=== PATIENT | female | born 1930 | race Caucasian/White ===

== ENCOUNTER 2016-05-20 14:21 | Observation (INO) | payer MEDICARE, BC ==
[~2016-05-20] VITALS: Ht 160 cm; Wt 92.7 kg
[~2016-05-20 14:21] MED LIST: ALTACE2.5 MG PO; ALTACE5 M1 PO; APIDRAVL SQ; ARMOUR THYROID90 MG PO; ASPIRIN 32325 MG/TAB PO; AZO-CRANBERRY450 MG PO; BUMEX 1MG TA1 MG/TA1 PO; CINNAMON/CHROMIUM PO; COLACE 100100 MG/CAP PO; COMBIGAN 0.2%-0.5 ML OS; CORDARONE200 MG/TAB PO; DEMADEX 20MG20 M1 PO; DEMADEX 20MG20 MG PO; FLAXSEED PO; GARLIC OIL1 MG PO; GARLIC100 MG PO; LANTUS100 U/ML SC; LANTUS100 U/ML SQ; LEVEMIR INSULIN; LEVEMIR100 U/ML SC; LIDODERM 5% PATC1 EA TP; MAG-OX 400400 MG/TAB PO; MAGOX; MASON NATURAL1000 MG PO; MASON NATURAL500 MG PO; METOLAZONE; MICRO-K 10 EXT10 MEQ PO; MICRO-K 1010 MEQ PO; NITROGLYCERIN 0.2 MG/HR TD; OS-CAL 500 + D1 TAB PO; PLAVIX 75MG TAB75 MG PO; PRILOSEC 20MG20 MG PO; SUPER EPA 1001000 MG PO; TEARS-ARTIFICIA15 ML OS; TEARS-ARTIFICIA15 ML OU; TORSEMIDE PO; TYLENOL 325MG325 MG PO; TYLENOL 500MG500 MG PO; ULTRAM 50MG TAB50 MG PO; ULTRAM50 MG PO; VITAMIN C500 MG PO; VITAMIN D1000 IU PO; ZAROXOLYN 2.52.5 MG PO; ZAROXOLYN2.5 MG PO; ZIAC 2.5/6.25MG1 TAB PO; see list
[2016-05-20 15:44] LABS: BASO % 0.3 % (0.0-2.0); EOS # 0.3 (0.0-0.7); EOS % 2.9 % (0-4.0); GRAN # 6.1 (1.4-6.5); GRAN % 60.4 % (42.2-75.2); HEMATOCRIT 40.8 % (37.0-47.0); HEMOGLOBIN 13.8 g/dl (12.5-16.0); LYMPH # 2.9 (1.2-3.4); LYMPH % 28.2 % (20.0-51.0); MEAN CELL VOLUME 91 fl (80.0-100.0); MEAN CORPUSCULAR HEMOGLOBIN 31 pg (27.0-31.0); MEAN CORPUSCULAR HGB CONC 34 g/dl (33.0-37.0); MEAN PLATELET VOLUME 9.9 fl (7.4-10.4); MONO # 0.8 (0.1-0.6); PLATELET COUNT 160 K/mm3 (130-400); RED BLOOD COUNT 4.48 M/mm3 (4.10-5.30); REDCELL DISTRIBUTION WIDTH-CV 12.7 % (11.5-14.5); WHITE BLOOD COUNT 10.1 K/mm3 (4.8-10.8)
[2016-05-20 15:51] LABS: PROTHROMBIN TIME 11.2 SECONDS (9.7-12.8)
[2016-05-20 15:54] LABS: PARTIAL THROMBOPLASTIN TIME 29.7 SECONDS (26.0-37.0)
[2016-05-20 16:00] LABS: ADJUSTED CALCIUM 9.6 mg/dL (8.4-10.2); ALBUMIN 3.5 gm/dL (3.5-5.0); BILIRUBIN,TOTAL 0.6 mg/dL (0.0-1.0); CALCIUM 9.2 mg/dL (8.4-10.2); CREATININE, serum 1.39 mg/dL (0.52-1.25); POTASSIUM 3.3 mmol/L (3.4-5.0); TOTAL PROTEIN 6.6 gm/dL (6.4-8.2)
[2016-05-20 16:11] LABS: TROPONIN-I 0.026 ng/mL (0.000-0.034)
[2016-05-20] MEDS ORDERED: ALTACE 5MG5 MG PO (17:13)
[2016-05-20 19:55] VITALS: BP 141/54; PULSE 64; TEMP 97.6
[2016-05-20 23:22] VITALS: BP 171/51; PULSE 61; TEMP 97.8
[2016-05-21 03:50] VITALS: BP 146/48; PULSE 62; TEMP 97.2
[2016-05-21 08:32] VITALS: BP 154/70; PULSE 64; TEMP 98.4
[2016-05-21 08:39] LABS: HEMATOCRIT 42.2 % (37.0-47.0); HEMOGLOBIN 14.2 g/dl (12.5-16.0); MEAN CELL VOLUME 91 fl (80.0-100.0); MEAN CORPUSCULAR HEMOGLOBIN 31 pg (27.0-31.0); MEAN CORPUSCULAR HGB CONC 34 g/dl (33.0-37.0); MEAN PLATELET VOLUME 10.3 fl (7.4-10.4); PLATELET COUNT 174 K/mm3 (130-400); RED BLOOD COUNT 4.65 M/mm3 (4.10-5.30); WHITE BLOOD COUNT 8.5 K/mm3 (4.8-10.8)
[2016-05-21 08:50] LABS: CALCIUM 9.3 mg/dL (8.4-10.2); CREATININE, serum 1.13 mg/dL (0.52-1.25); POTASSIUM 3.5 mmol/L (3.4-5.0)
[2016-05-21 12:04] VITALS: BP 132/44; PULSE 59; TEMP 98.2
[2016-05-21 13:01] LABS: C-REACTIVE PROTEIN 0.8 mg/dL (0.0-0.9)
[2016-05-21] MEDS ORDERED: ZITHROMAX 250M250 MG PO (13:18)
[2016-05-21] MEDS ORDERED: NITROSTAT0.4 MG/TAB SL (13:19)
[2016-05-21] MEDS ORDERED: PREDNISONE20 MG PO (13:21)
== END 2016-05-21 16:00 | disposition home or self-care (01) ==
LOC: COL.ER 14:21 → MEDICAL 17:10
PROVIDERS: Family Medicine; Internal Medicine
DX: R07.9 Chest pain, unspecified (principal); M25.511 Pain in right shoulder; I48.91 Unspecified atrial fibrillation; R06.02 Shortness of breath; E11.9 Type 2 diabetes mellitus without complications; Z79.4 Long term (current) use of insulin; N17.9 Acute kidney failure, unspecified; I25.10 Atherosclerotic heart disease of native coronary artery without angina pectoris; I10 Essential (primary) hypertension; E87.6 Hypokalemia; Z95.0 Presence of cardiac pacemaker; Z95.5 Presence of coronary angioplasty implant and graft; I73.9 Peripheral vascular disease, unspecified; I50.9 Heart failure, unspecified; Z66 Do not resuscitate
CPT/HCPCS: 99223-AI; G0378; J1644; J1815; J7030; J7512; Q9967

== ENCOUNTER 2016-08-24 20:58 | Inpatient (IN) | payer MEDICARE, BC ==
[~2016-08-24] VITALS: Ht 160 cm; Wt 96.4 kg
[~2016-08-24 20:58] MED LIST changes: +ALTACE 5MG5 MG PO; +NITROSTAT0.4 MG/TAB SL; +PREDNISONE20 MG PO; +ZITHROMAX 250M250 MG PO
[2016-08-24 22:05] LABS: BASO % 0.3 % (0.0-2.0); EOS # 0.1 (0.0-0.7); EOS % 0.9 % (0-4.0); GRAN # 7.9 (1.4-6.5); GRAN % 70.1 % (42.2-75.2); HEMATOCRIT 44.2 % (37.0-47.0); HEMOGLOBIN 15.1 g/dl (12.5-16.0); LYMPH # 2.5 (1.2-3.4); LYMPH % 22.3 % (20.0-51.0); MEAN CELL VOLUME 92 fl (80.0-100.0); MEAN CORPUSCULAR HEMOGLOBIN 31 pg (27.0-31.0); MEAN CORPUSCULAR HGB CONC 34 g/dl (33.0-37.0); MEAN PLATELET VOLUME 10.6 fl (7.4-10.4); MONO # 0.7 (0.1-0.6); PLATELET COUNT 156 K/mm3 (130-400); RED BLOOD COUNT 4.82 M/mm3 (4.10-5.30); REDCELL DISTRIBUTION WIDTH-CV 12.9 % (11.5-14.5); WHITE BLOOD COUNT 11.3 K/mm3 (4.8-10.8)
[2016-08-24 22:13] LABS: PROTHROMBIN TIME 11.1 SECONDS (9.7-12.8)
[2016-08-24] MEDS ORDERED: TIROSINT125 MC1 PO (22:15)
[2016-08-24 22:16] LABS: ADJUSTED CALCIUM 8.9 mg/dL (8.4-10.2); ALBUMIN 3.9 gm/dL (3.5-5.0); BILIRUBIN,TOTAL 0.7 mg/dL (0.0-1.0); CALCIUM 8.8 mg/dL (8.4-10.2); CREATININE, serum 1.68 mg/dL (0.52-1.25)
[2016-08-24 22:30] LABS: TROPONIN-I 0.037 ng/mL (0.000-0.034)
[2016-08-24 22:35] LABS: PH 7 (5-8); URINE APPEARANCE Clear; URINE BILIRUBIN Negative (NEGATIVE); URINE BLOOD Negative (NEGATIVE); URINE COLOR Yellow; URINE GLUCOSE Negative (NEGATIVE); URINE KETONE Negative (NEGATIVE); URINE UROBILINOGEN Negative (NEGATIVE)
[2016-08-24 22:39] LABS: URINE RBC 0-2 /hpf; URINE WBC 0-2 /hpf
[2016-08-24] MEDS ORDERED: HUMALOG PEN100 U/ML SQ (23:35)
[2016-08-24] MEDS ORDERED: ULTRAM 50MG TAB50 MG PO (23:40)
[2016-08-24] MEDS ORDERED: ZIAC 2.5/6.25MG1 TAB PO (23:41)
[2016-08-24] MEDS ORDERED: TYLENOL 325MG325 MG PO (23:42)
[2016-08-25] VITALS (7 sets, daily range): BP systolic 118–147; BP diastolic 35–81; PULSE 60–98; TEMP 97.8–98.7
[2016-08-25] MEDS ORDERED: ZOFRAN 4MG T4 MG/TAB PO (00:25)
[2016-08-25] MEDS ORDERED: PROTONIX 40MG T40 MG PO (00:26)
[2016-08-25 06:09] LABS: BASO % 0.2 % (0.0-2.0); EOS # 0.1 (0.0-0.7); GRAN # 6.4 (1.4-6.5); GRAN % 63.5 % (42.2-75.2); HEMATOCRIT 38.4 % (37.0-47.0); LYMPH # 2.8 (1.2-3.4); MEAN CELL VOLUME 94 fl (80.0-100.0); MEAN CORPUSCULAR HGB CONC 34 g/dl (33.0-37.0); MEAN PLATELET VOLUME 10.7 fl (7.4-10.4); MONO # 0.7 (0.1-0.6); PLATELET COUNT 143 K/mm3 (130-400)
[2016-08-25 06:19] LABS: CALCIUM 7.7 mg/dL (8.4-10.2); CREATININE, serum 1.44 mg/dL (0.52-1.25); POTASSIUM 3.1 mmol/L (3.4-5.0)
[2016-08-25 06:21] LABS: HEMOGLOBIN 12.9 g/dl (12.5-16.0); MEAN CORPUSCULAR HEMOGLOBIN 31 pg (27.0-31.0)
[2016-08-25 06:34] LABS: TROPONIN-I 0.041 ng/mL (0.000-0.034)
[2016-08-26 02:50] VITALS: BP 153/60; PULSE 78; TEMP 98.5
[2016-08-26 07:31] VITALS: BP 147/49; PULSE 66; TEMP 98.1
[2016-08-26 10:56] LABS: CALCIUM 8.3 mg/dL (8.4-10.2); CREATININE, serum 0.97 mg/dL (0.52-1.25)
[2016-08-26] MEDS ORDERED: ZEBETA 5MG5 MG PO (11:32)
[2016-08-26] MEDS ORDERED: BUMEX 1MG TA1 MG/TA1 PO (11:35)
[2016-08-26 11:36] VITALS: BP 141/53; PULSE 67; TEMP 98
== END 2016-08-26 14:38 | disposition home or self-care (01) | DRG 683 ==
LOC: COL.ER 20:58 → MEDICAL 22:47
PROVIDERS: Emergency Medicine; Internal Medicine; Nurse Practitioner Family
DX: N17.9 Acute kidney failure, unspecified (principal); E87.1 Hypo-osmolality and hyponatremia; I50.22 Chronic systolic (congestive) heart failure; Z66 Do not resuscitate; I11.0 Hypertensive heart disease with heart failure; E11.9 Type 2 diabetes mellitus without complications; I48.91 Unspecified atrial fibrillation; Z95.0 Presence of cardiac pacemaker; I25.10 Atherosclerotic heart disease of native coronary artery without angina pectoris; I73.9 Peripheral vascular disease, unspecified; E86.0 Dehydration; Z95.5 Presence of coronary angioplasty implant and graft; K21.9 Gastro-esophageal reflux disease without esophagitis; Z95.820 Peripheral vascular angioplasty status with implants and grafts
CPT/HCPCS: 99223-AI; 99239; J1644; J1815; J3480; J7030

== ENCOUNTER 2016-12-10 06:10 | Day surgery (SDC) | payer MEDICARE, BC ==
[2008-01-14 19:04] VITALS: BP 127/57
[~2016-12-10] VITALS: Ht 160 cm; Wt 91.3 kg
[2016-12-10] VITALS (8 sets, daily range): BP systolic 93–145; BP diastolic 47–65; PULSE 59–85; TEMP 97.8
[~2016-12-10 06:10] MED LIST changes: +HUMALOG PEN100 U/ML SQ; +PROTONIX 40MG T40 MG PO; +TIROSINT125 MC1 PO; +ZEBETA 5MG5 MG PO; +ZOFRAN 4MG T4 MG/TAB PO
[2016-12-10 06:48] LABS: HEMATOCRIT 44.1 % (37.0-47.0); HEMOGLOBIN 14.4 g/dl (12.5-16.0); MEAN CELL VOLUME 95 fl (80.0-100.0); MEAN CORPUSCULAR HEMOGLOBIN 31 pg (27.0-31.0); MEAN CORPUSCULAR HGB CONC 33 g/dl (33.0-37.0); MEAN PLATELET VOLUME 9.8 fl (7.4-10.4); PLATELET COUNT 177 K/mm3 (130-400); RED BLOOD COUNT 4.65 M/mm3 (4.10-5.30); REDCELL DISTRIBUTION WIDTH-CV 13.2 % (11.5-14.5); WHITE BLOOD COUNT 8.7 K/mm3 (4.8-10.8)
[2016-12-10 06:54] LABS: PROTHROMBIN TIME 11.2 SECONDS (9.7-12.8)
[2016-12-10 06:58] LABS: CALCIUM 9.1 mg/dL (8.4-10.2); CREATININE, serum 1.18 mg/dL (0.52-1.25); POTASSIUM 3.6 mmol/L (3.4-5.0)
[2016-12-10] MEDS ORDERED: NITRO-DUR0.2 MG/PAT TD (07:37)
[2016-12-10] MEDS ORDERED: BUMEX 1MG TA1 MG/TA1 PO (07:39)
[2016-12-10] MEDS ORDERED: HUMALOG100 U/ML SQ (07:40)
[2016-12-10] MEDS ORDERED: CALCIUM 600MG+D1 TAB PO (07:41)
[2016-12-10] MEDS ORDERED: ZEBETA 5MG5 MG PO (07:42)
[2016-12-10] MEDS ORDERED: TIROSINT125 MC1 PO (07:43)
[2016-12-10] MEDS ORDERED: CEPHALEXIN500 M1 PO (12:30)
== END 2016-12-10 12:53 | disposition home or self-care (01) ==
LOC: COL.CAR 06:10
PROVIDERS: Internal Medicine Cardiovascular Disease
DX: Z45.02 Encounter for adjustment and management of automatic implantable cardiac defibrillator (principal); I25.10 Atherosclerotic heart disease of native coronary artery without angina pectoris; I42.9 Cardiomyopathy, unspecified; I10 Essential (primary) hypertension; E11.9 Type 2 diabetes mellitus without complications; E03.9 Hypothyroidism, unspecified; H81.09 Meniere's disease, unspecified ear
CPT/HCPCS: C1882; J1200; J2250; J3010; J3370; J7030; J7050

== ENCOUNTER 2017-12-15 05:53 | Emergency (ER) | payer MEDICARE, BC ==
[2008-01-14 19:04] VITALS: BP 127/57
[~2017-12-15] VITALS: Ht 160 cm; Wt 90.9 kg
[~2017-12-15 05:53] MED LIST changes: +CALCIUM 600MG+D1 TAB PO; +CEPHALEXIN500 M1 PO; +HUMALOG100 U/ML SQ; +NITRO-DUR0.2 MG/PAT TD
[2017-12-15 05:55] VITALS: BP 157/101; PULSE 79; TEMP 96.9
[2017-12-15] MEDS ORDERED: PACERONE200 MG PO (06:06)
[2017-12-15] MEDS ORDERED: HUMALOG100 U/ML SQ (06:06)
[2017-12-15] MEDS ORDERED: ALTACE 5MG5 MG PO (06:06)
[2017-12-15] MEDS ORDERED: BUMEX 1MG TA1 MG/TA1 PO (06:12)
[2017-12-15] MEDS ORDERED: NITRO-DUR0.2 MG/PAT TD (10:27)
[2017-12-15] MEDS ORDERED: NATURAL MAGNES200 MG PO (10:28)
[2017-12-15] MEDS ORDERED: COLACE 100100 MG/CAP PO (10:29)
[2017-12-15] MEDS ORDERED: ASPIRIN 32325 MG/TAB PO (10:29)
[2017-12-15] MEDS ORDERED: MICRO-K 10 EXT10 MEQ PO (10:29)
[2017-12-15] MEDS ORDERED: ULTRAM 50MG TAB50 MG PO (10:30)
[2017-12-15] MEDS ORDERED: LANTUS100 U/ML SQ (10:30)
[2017-12-15] MEDS ORDERED: CALCIUM 600MG+D1 TAB PO (10:34)
[2017-12-15] MEDS ORDERED: ZEBETA 5MG5 MG PO (10:34)
[2017-12-15] MEDS ORDERED: TIROSINT125 MC1 PO (10:35)
[2017-12-15] MEDS ORDERED: COMBIGAN 0.2%-0.5 ML OD (10:35)
[2017-12-15] MEDS ORDERED: VITAMIN C500 MG PO (11:06)
[2017-12-15] MEDS ORDERED: CINNAMON500 MG PO (11:06)
[2017-12-15] MEDS ORDERED: CHROMIUM PICO200 MC2 PO (11:07)
[2017-12-15] MEDS ORDERED: EPA FISH OIL1 SGL PO (11:07)
[2017-12-15] MEDS ORDERED: LINSEED OIL 1 ML1 ML (11:07)
== END 2017-12-15 08:42 | disposition home or self-care (01) ==
LOC: COL.ER 05:53
DX: S61.215A Laceration without foreign body of left ring finger without damage to nail, initial encounter (principal); I10 Essential (primary) hypertension; E11.9 Type 2 diabetes mellitus without complications; Z79.4 Long term (current) use of insulin; W26.8XXA Contact with other sharp object(s), not elsewhere classified, initial encounter

== ENCOUNTER 2017-12-25 13:07 | Emergency (ER) | payer MEDICARE, BC ==
[~2017-12-25 13:07] MED LIST changes: +CHROMIUM PICO200 MC2 PO; +CINNAMON500 MG PO; +COMBIGAN 0.2%-0.5 ML OD; +EPA FISH OIL1 SGL PO; +LINSEED OIL 1 ML1 ML; +NATURAL MAGNES200 MG PO; +PACERONE200 MG PO
[2017-12-25 13:15] VITALS: BP 141/63; PULSE 69; TEMP 97.8
== END 2017-12-25 13:24 | disposition home or self-care (01) ==
LOC: COL.ER 13:07
DX: S61.215D Laceration without foreign body of left ring finger without damage to nail, subsequent encounter (principal); Z79.4 Long term (current) use of insulin; Z79.899 Other long term (current) drug therapy; Z79.82 Long term (current) use of aspirin

== ENCOUNTER 2018-10-08 05:35 | Emergency (ER) | payer MEDICARE, BC ==
[2008-01-14 19:04] VITALS: BP 127/57
[~2018-10-08] VITALS: Ht 160 cm; Wt 90.5 kg
[2018-10-08 06:52] LABS: BASO % 0.5 % (0.0-2.0); EOS # 0.3 (0.0-0.7); EOS % 3.6 % (0-4.0); GRAN # 5.5 (1.4-6.5); GRAN % 65.4 % (42.2-75.2); HEMATOCRIT 42.2 % (37.0-47.0); LYMPH # 1.9 (1.2-3.4); LYMPH % 22.4 % (20.0-51.0); MEAN CELL VOLUME 95 fl (80.0-100.0); MEAN CORPUSCULAR HEMOGLOBIN 32 pg (27.0-31.0); MEAN CORPUSCULAR HGB CONC 33 g/dl (33.0-37.0); MEAN PLATELET VOLUME 9.6 fl (7.4-10.4); MONO # 0.7 (0.1-0.6); MONO % 7.7 % (1.7-9.3); PLATELET COUNT 184 K/mm3 (130-400); RED BLOOD COUNT 4.45 M/mm3 (4.10-5.30); REDCELL DISTRIBUTION WIDTH-CV 13.1 % (11.5-14.5)
[2018-10-08 07:00] LABS: ALBUMIN 3.4 gm/dL (3.5-5.0); BILIRUBIN,TOTAL 0.7 mg/dL (0.0-1.0); CREATININE, serum 0.91 (0.52-1.25); POTASSIUM 4.4 mmol/L (3.4-5.0); PROTHROMBIN TIME 11.1 SECONDS (9.7-12.8); TOTAL PROTEIN 6.6 gm/dL (6.4-8.2)
[2018-10-08 07:12] LABS: TROPONIN-I 0.013 ng/mL (0.000-0.035)
[2018-10-08 08:05] VITALS: TEMP 98.4
[2018-10-08] MEDS ORDERED: HUMALOG100 U/ML (09:17)
[2018-10-08 09:22] LABS: COLLECTION METHOD CLEAN CATCH
[2018-10-08 09:28] LABS: PH 6 (5-8); SQUAMOUS EPITHELIAL None Seen /hpf; URINE APPEARANCE Clear; URINE BACTERIA None Seen /hpf; URINE BILIRUBIN Negative (NEGATIVE); URINE BLOOD Negative (NEGATIVE); URINE COLOR Amber; URINE GLUCOSE Negative (NEGATIVE); URINE KETONE Negative (NEGATIVE); URINE LEUKOCYTE ESTERASE Negative (NEGATIVE); URINE NITRATE Positive (NEGATIVE); URINE PROTEIN(semi-quant) Negative (NEGATIVE); URINE RBC 0-2 /hpf; URINE UROBILINOGEN >=4.0 mg/dL (NEGATIVE)
[2018-10-08 10:04] VITALS: BP 144/68; PULSE 68
== END 2018-10-08 10:14 | disposition home or self-care (01) ==
LOC: COL.ER 05:35
PROVIDERS: Emergency Medicine
DX: J81.1 Chronic pulmonary edema (principal); R59.0 Localized enlarged lymph nodes; R09.81 Nasal congestion; I48.91 Unspecified atrial fibrillation; I50.9 Heart failure, unspecified; I25.10 Atherosclerotic heart disease of native coronary artery without angina pectoris; Z95.0 Presence of cardiac pacemaker; Z79.4 Long term (current) use of insulin; Z79.82 Long term (current) use of aspirin
CPT/HCPCS: J1200; J2930; Q9967

== ENCOUNTER → 2018-10-25 | Outpatient (CLI) | payer MEDICARE, BC ==
[2008-01-14 19:04] VITALS: BP 127/57
[2018-10-25] VITALS (10 sets, daily range): BP systolic 127–172; BP diastolic 51–74; PULSE 60–72
[~2018-10-25] VITALS: Ht 160 cm; Wt 86.5 kg
[~2018-10-25] MED LIST changes: -COMBIGAN 0.2%-0.5 ML OD
--- NOTE | 2018-10-25 11:35 | NUR ---
Pt to ct per wheelchair. Pt up and positioned in prone position for biopsy. Monitor applied and O2 at 2l/nc.
--- NOTE | 2018-10-25 11:40 | NUR ---
Dr Roth into room and talks with pt.
--- NOTE | 2018-10-25 11:50 | NUR ---
Specimens obtained and placed in formalin and RPMI by Dr Roth. Specimen labeled.
== END ==
LOC: COL.RAD 09:30
DX: R59.0 Localized enlarged lymph nodes (principal)